=== PATIENT | female | born 1940 | race Two or more races ===

== ENCOUNTER → 2024-02-06 | Outpatient (BNVA) | payer OTHER, MEDICAID, SELFPAY | END | disposition home or self-care (01) | PROVIDERS: PCP Nurse Practitioner Family; Referring Provider Nurse Practitioner Family; Visit Provider Urology Female Pelvic Medicine and Reconstructive Surgery | DX: N32.81 Overactive bladder (principal); N39.41 Urge incontinence; N76.0 Acute vaginitis; E11.9 Type 2 diabetes mellitus without complications; I10 Essential (primary) hypertension; E78.00 Pure hypercholesterolemia, unspecified; K21.9 Gastro-esophageal reflux disease without esophagitis | CPT/HCPCS: 51798; 76857; 81003; 99212; G0463 ==

== ENCOUNTER → 2024-03-05 | Outpatient (CLI) | payer OTHER, MEDICAID, SELFPAY ==
[2024-03-05 07:32] LABS: Misc Send Out* See Sep Rpt
[2024-03-05 07:51] LABS: Collection Type, Urine Clean Catch
[2024-03-05 08:38] LABS: Basophils % (Auto) 1 % (0-2.5); Eosinophils # (Auto) 0.2 Thou/mm3 (0.0-0.5); Eosinophils % (Auto) 3 % (0-10); Hematocrit 43.5 % (36.0-46.0); Immature Granulocytes % (Auto) 0 % (0-0); Immature Granulocytes Auto 0.02 Thou/mm3 (0.00-0.00); Lymphocytes # (Auto) 1.7 Thou/mm3 (1.0-4.8); Lymphocytes % (Auto) 21 % (10-50); Mean Corpuscular HGB Conc 34.5 g/dl (31.0-37.0); Mean Corpuscular Hemoglobin 29.3 pg (25.0-35.0); Mean Corpuscular Volume 85 fL (80-100); Monocytes # (Auto) 0.5 Thou/mm3 (0.0-0.8); Monocytes % (Auto) 6 % (0-12); Neutrophils # (Auto) 5.5 Thou/mm3 (1.8-7.7); Neutrophils % (Auto) 69 % (37-80); Nucleated Red Blood Cell % 0 /100 WBC (0); Platelet Count 206 Thou/mm3 (140-440); RDW Standard Deviation 38.9 fL (36.4-46.3); Red Blood Count 5.12 Miln/mm3 (4.00-5.20); White Blood Count 7.9 Thou/mm3 (3.6-11.0)
[2024-03-05 08:48] LABS: Bacteria,Urine 3+; Bilirubin,Urine Negative (Negative); Blood,Urine Negative (Negative); Color,Urine Yellow (Lt Yel-Yel); Glucose, Urine 4+ (Negative); Ketones,Urine Negative (Negative); Leukocyte Esterase,Urine Positive (Negative); Nitrite,Urine Positive (Negative); PH,Urine 6.5 (5.0-7.0); Protein,Urine Negative (Neg - Trace); RBC,Urine 3 /hpf (0-3); Specific Gravity,Urine 1.032 (1.001-1.035); Squamous Epithelial Cell,Urine 6 /hpf (0-5); Urobilinogen,Urine Negative mg/dL (0.0-1.0); WBC,Urine 11 /hpf (0-5)
[2024-03-05 08:55] LABS: Folate 21.03 ng/mL (>5.38)
[2024-03-05 08:56] LABS: Cardiac Risk Estimate 4.3 RATIO (3.7-5.6); Cholesterol 166 mg/dL (132-200); HDL Cholesterol 39 mg/dL (40-60); LDL Cholesterol,Calculated 81 mg/dL (0-130); Thyroid Stimulating Hormone 2.66 uIU/mL (0.55-4.78); Triglycerides 231 mg/dL (30-150)
[2024-03-05 09:10] LABS: Clarity,Urine Hazy (Clear/Hazy)
[2024-03-05 10:22] LABS: Ferritin 66 ng/mL (7.3-270.7); T4 (Thyroxine) 10.5 mcg/dL (4.5-10.9); Total Iron Binding Capacity 268 mcg/dL (250-425)
[2024-03-05 12:09] LABS: Glucose Estimated Average 298 mg/dL (80-131)
== END | disposition home or self-care (01) ==
PROVIDERS: PCP Family Medicine; Referring Provider Nurse Practitioner Family; Visit Provider Nurse Practitioner Family
DX: D64.9 Anemia, unspecified (principal); E11.9 Type 2 diabetes mellitus without complications; I10 Essential (primary) hypertension
CPT/HCPCS: 36415; 80061; 81001; 82728; 82746; 83036; 83550; 84436; 84443; 84466; 85025

== ENCOUNTER → 2024-03-12 | Outpatient (CLI) | payer OTHER, MEDICAID, SELFPAY | END | disposition home or self-care (01) | LOC: SLDO 15:35 | PROVIDERS: PCP Family Medicine; Referring Provider Family Medicine; Visit Provider Family Medicine | DX: N39.0 Urinary tract infection, site not specified (principal) | CPT/HCPCS: 87077; 87086; 87186 ==

== ENCOUNTER 2024-03-26 17:55 | Emergency (ER) | payer OTHER, MEDICAID, SELFPAY ==
[2024-03-26 18:20] VITALS: BP 145/80; PULSE 83; RESP 19; TEMP 36.9; O2SAT 95; BMI 33.0
--- NOTE | 2024-03-26 18:34 | PD.EDRME ---
Rapid Medical Screening Exam RME Arrival date/time: 03/26/24 17:55 83-year-old female past medical history of hypertension and diabetes since emergency department complaining of diaphoresis with nausea vomiting started 2 hours ago. Patient reports thinks her blood sugar is elevated. Chief Complaint: Nausea/Vomiting/Diarrhea Time Seen by Provider: 03/26/24 18:21 Vital signs: Vital Signs Temperature 98.4 F 03/26/24 18:20 Pulse Rate 83 03/26/24 18:20 Respiratory Rate 19 03/26/24 18:20 Blood Pressure 145/80 H 03/26/24 18:20 Pulse Oximetry (%) 95 03/26/24 18:20 Oxygen Delivery Method Room Air 03/26/24 18:20 Vital signs reviewed by provider: Yes
[2024-03-26 19:06] LABS: Basophils # (Auto) 0.1 Thou/mm3 (0.0-0.2); Basophils % (Auto) 0 % (0-2.5); Eosinophils # (Auto) 0.2 Thou/mm3 (0.0-0.5); Eosinophils % (Auto) 2 % (0-10); Hematocrit 43.4 % (36.0-46.0); Hemoglobin 14.4 g/dL (12.0-16.0); Immature Granulocytes % (Auto) 0 % (0-0); Immature Granulocytes Auto 0.04 Thou/mm3 (0.00-0.00); Lymphocytes # (Auto) 2.8 Thou/mm3 (1.0-4.8); Lymphocytes % (Auto) 25 % (10-50); Mean Corpuscular HGB Conc 33.2 g/dl (31.0-37.0); Mean Corpuscular Hemoglobin 29.1 pg (25.0-35.0); Mean Corpuscular Volume 88 fL (80-100); Monocytes # (Auto) 0.9 Thou/mm3 (0.0-0.8); Monocytes % (Auto) 8 % (0-12); Neutrophils # (Auto) 7.1 Thou/mm3 (1.8-7.7); Neutrophils % (Auto) 64 % (37-80); Nucleated Red Blood Cell % 0 /100 WBC (0); Platelet Count 229 Thou/mm3 (140-440); RDW Standard Deviation 41.9 fL (36.4-46.3); Red Blood Count 4.95 Miln/mm3 (4.00-5.20); White Blood Count 11.1 Thou/mm3 (3.6-11.0)
[2024-03-26 19:22] LABS: Alanine Aminotransferase 17 U/L (10-49); Albumin, Serum 4.5 gm/dL (3.4-4.8); Albumin/Globulin Ratio 1.5 (1.2-2.2); Alkaline Phosphatase 90 U/L (46-116); Anion Gap 10 (7-16); Aspartate Amino Transferase 16 U/L (0-34); BUN/Creatinine Ratio 21 Ratio (12-20); Bilirubin,Total 0.4 mg/dL (0.3-1.2); Blood Urea Nitrogen 17 mg/dL (9-23); Calcium 9.6 mg/dL (8.3-10.6); Calcium (Corrected) 9.6 mg/dL (8.5-10.1); Carbon Dioxide 25.9 mMol/L (20.0-31.0); Chloride 104 mMol/L (98-107); Creatinine (Component) 0.8 mg/dL (0.6-1.3); Estimated Creatinine Clearance 49.6 mL/min (>60); Glucose 99 mg/dL (74-106); Lipase 52 U/L (12-53); Osmolality,Calculated 280 (275-295); Potassium 4.2 mMol/L (3.4-5.1); Sodium 140 mMol/L (136-145); Total Protein 7.5 gm/dL (5.7-8.2); eGFR > 60 See Note
[2024-03-26 19:28] LABS: Collection Type, Urine Clean Catch
[2024-03-26 19:58] LABS: Bacteria,Urine Rare; Bilirubin,Urine Negative (Negative); Blood,Urine Negative (Negative); Clarity,Urine Clear (Clear/Hazy); Color,Urine Lt-Yellow (Lt Yel-Yel); Culture Indicated,Urine Not Indicated; Glucose, Urine 4+ (Negative); Ketones,Urine Negative (Negative); Leukocyte Esterase,Urine Negative (Negative); Nitrite,Urine Negative (Negative); Protein,Urine Negative (Neg - Trace); RBC,Urine 1 /hpf (0-3); Specific Gravity,Urine 1.017 (1.001-1.035); Squamous Epithelial Cell,Urine 6 /hpf (0-5); Urobilinogen,Urine Negative mg/dL (0.0-1.0); WBC,Urine 4 /hpf (0-5)
--- NOTE | 2024-03-26 20:16 | EDNOTE_ITS ---
ED General RME/HPI General Chief complaint: Nausea/Vomiting/Diarrhea Stated complaint: N/V, HOT FLASHES, LIGHT HEADED Time Seen by Provider: 03/26/24 18:21 Source: patient Arrival date/time: 03/26/24 17:55 83-year-old female past medical history of hypertension and diabetes since emergency department complaining of diaphoresis with nausea that started 2 hours ago. Patient reports thinks her blood sugar is elevated. Mode of arrival: ambulatory Limitations: no limitations RME / HPI RME / HPI narrative: 03/26/24 17:55 83-year-old female past medical history of hypertension and diabetes since emergency department complaining of diaphoresis with nausea vomiting started 2 hours ago. Patient reports thinks her blood sugar is elevated. Related Data Home Medications ?Medication ?Instructions ?Recorded ?Confirmed metoprolol succinate 50 mg 50 mg PO DAILY 01/01/18 02/06/24 tablet,extended release 24 hr amlodipine 10 mg tablet 10 mg PO QDAY 04/07/22 02/06/24 acetaminophen 500 mg tablet 500 mg PO Q6H PRN Pain 08/05/23 02/06/24 atorvastatin 20 mg tablet 20 mg PO QDAY 08/05/23 02/06/24 ibuprofen 800 mg tablet 800 mg PO Q8H PRN Pain 08/05/23 02/06/24 olmesartan 5 mg tablet 5 mg PO QDAY 08/05/23 02/06/24 estradiol 0.01% (0.1 mg/gram) 2 g vaginal DIRECTED 02/06/24 02/06/24 vaginal cream (Estrace) oxybutynin chloride 10 mg 10 mg PO QDAY 02/06/24 02/06/24 tablet,extended release 24 hr Allergies Allergy/AdvReac Type Severity Reaction Status Date / Time codeine AdvReac Severe Vomiting Verified 02/06/24 09:51 morphine AdvReac Severe Vomiting Verified 02/06/24 09:51 Review of Systems Review of Systems Systems Reviewed: All systems reviewed, normal except as documented Constitutional Constitutional: Reports system reviewed and no additional complaints, except as documented, Denies body ache(s), Denies chills, Reports excessive sweating and Denies fever(s) Eyes Eyes: Reports system reviewed and no additional complaints, except as documented and Denies change in vision ENT Ears, Nose, Mouth, and Throat: Reports system reviewed and no additional complaints, except as documented, Denies disequilibrium, Denies dizziness, Denies sore throat and Denies vertigo Cardiovascular Cardiovascular: Reports system reviewed and no additional complaints, except as documented, Denies chest pain and Denies dyspnea Respiratory Respiratory: Reports system reviewed and no additional complaints, except as documented, Denies chest congestion, Denies cough and Denies dyspnea Gastrointestinal Gastrointestinal: Reports system reviewed and no additional complaints, except as documented, Denies abdominal pain, Reports nausea and Denies vomiting Musculoskeletal Musculoskeletal: Reports system reviewed and no additional complaints, except as documented, Denies abnormal gait and Denies arthralgias Integumentary/Breasts Skin/Breast: Reports system reviewed and no additional complaints, except as documented, Denies erythema, Denies rash and Denies wounds Neurologic Neurologic: Reports system reviewed and no additional complaints, except as documented, Denies abnormal gait, Denies disequilibrium, Denies dizziness and Denies vertigo Endocrine Endocrine: Reports excessive sweating Past Medical History Past Medical History NEUROLOGIC: Negative Neurological Disorders or Seizures CARDIAC: Positive Cardiac Disorders, Hypercholesterolemia and Hypertension; Negative Congestive Heart Failure RESPIRATORY: Negative Chronic Obstructive Pulmonary Disease (COPD) or Asthma GASTROINTESTINAL: Positive Gastrointestinal Disorders, Gall Bladder Disease, Gastroesophageal Reflux Disease and Obesity; Negative Hepatitis GENITOURINARY: Negative Genitourinary Disorders or Renal Disease REPRODUCTIVE: Positive Previous Pregnancies; Negative Endometriosis MUSCULOSKELETAL: Positive Musculoskeletal Disorders, Arthritis and Carpal Tunnel Syndrome (left) ENT: Positive Cataracts (left) ENDOCRINE: Positive Endocrine Disorders and Diabetes Mellitus Type 2 (Diet control, does not take meds); Negative Diabetes Mellitus Type 1 HEMATOLOGIC: Negative Blood Disorders or Sickle Cell Disease OTHER HISTORY: Positive Hospitalization, Chicken Pox, Measles and Mumps; Negative Autoimmune Disease, Shingles, Falls, Blood Transfusions, Blood Transfusion Reaction, Anesthesia Reactions, Chemotherapy, Radiation Therapy, MRSA or Cancer Family History FAMILY HISTORY: Negative Family Psychiatric Problems, Family Respiratory Disorders, Family Cardiac Disorders, Family Gastrointestinal Problems, Family Cancer, Family Surgery or Family Anesthesia Reaction Surgical History SURGICAL: Positive Thyroidectomy, Ear Surgery, Joint Replacement, Hysterectomy and Tubal Ligation; Negative Cardiac Surgery Social History SMOKING STATUS: Never smoker SUBSTANCE USE: does not use ED Exam General Limitations: Present no limitations General appearance: Present alert and in no apparent distress Head Head exam: Present atraumatic Eye Eye exam: Present normal appearance, PERRL and EOMI ENT ENT exam: Present normal exam, normal oropharynx and mucous membranes moist Neck Neck exam: Present normal inspection, full ROM and trachea midline Chest Chest inspection: Present normal inspection and symmetric chest wall rise Respiratory Respiratory exam: Present normal lung sounds bilaterally Cardiovascular Cardiovascular exam: Present regular rate, normal rhythm and normal heart sounds Abdominal Exam Abdominal exam: Present soft and normal bowel sounds Extremities Exam Extremities exam: Present normal inspection and full ROM Back Exam Back exam: Present normal inspection and full ROM Neurological Exam Neurological exam: Present alert, oriented X3 and CN II-XII intact Psychiatric Psychiatric exam: Present normal affect and normal mood Skin Skin exam: Present warm, dry, intact and normal color Course Quality Measures none Orders Category Date Time Status CBC Stat Lab 03/26/24 18:37 Completed CMP [Comprehensive Metabolic Panel] Stat Lab 03/26/24 18:37 Completed Lipase Stat Lab 03/26/24 18:37 Completed Urinalysis, C/S if Indicated Stat Lab 03/26/24 19:00 Completed Vital Signs Vital signs: Vital Signs Temperature 98.4 F 03/26/24 18:20 Pulse Rate 83 03/26/24 18:20 Respiratory Rate 19 03/26/24 18:20 Blood Pressure 145/80 H 03/26/24 18:20 Pulse Oximetry (%) 95 03/26/24 18:20 Oxygen Delivery Method Room Air 03/26/24 18:20 95% room air within normal limits MDM Patient data External records reviewed:: [facility] previous records Clinical information provided by:: patient Social determinants that could affect healthcare access:: none Patient has the following chronic illnesses:: See chart How is presenting disease/condition affected by chronic disease/condition?: u neffected by Evaluation data The following diagnostics were reviewed and interpreted by me:: lab results Lab and/or radiology exams considered but not ordered:: Ordered Interpretation Summary: Interpreted by me Medications Medications considered but not ordered:: N/A Medication administrations:: N/A Consultations Consultation(s) initiated? (list below): No Diagnosis Differential Diagnosis ED Complaint MDM: Hyperglycemia, viral infection, UTI, Most likely diagnosis given after review of the tests above:: Nausea Admission Indicated Admission indicated?: not indicated Explain why admission is indicated or not indicated:: No admission criteria Admission Request Was there a request for admission?: No Disposition Plan Disposition Plan: Discharge Discharge Attestation Discharge Attestation: The patient and all family members were given an opportunity to ask questions and understood the discharge instructions. Discharge instructions specifically effects, indications for sooner follow up or return to the emergency department, and the expected course of current diagnosis. Patient condition: Stable Medical Decision Making MDM Narrative MDM Narrative: 83-year-old female past medical history of hypertension and diabetes since emergency department complaining of diaphoresis with nausea that started 2 hours ago. Patient reports thinks her blood sugar is elevated. CBC and CMP were unremarkable. Urinalysis unremarkable for any infection. Patient appears nontoxic and is hemodynamically stable. Patient do not report any pain at this time. No vomiting was observed during stay. Patient discharged instructed to follow-up with primary care provider. Differential Diagnosis Differential Diagnosis: Hyperglycemia, viral infection, UTI, Lab Data 03/26/24 18:37 03/26/24 18:37 Labs: Lab Results 03/26/24 03/26/24 Range/Units 18:37 19:00 WBC 11.1 H (3.6-11.0) Thou/mm3 RBC 4.95 (4.00-5.20) Miln/mm3 Hgb 14.4 (12.0-16.0) g/dL Hct 43.4 (36.0-46.0) % MCV 88 (80-100) fL MCH 29.1 (25.0-35.0) pg MCHC 33.2 (31.0-37.0) g/dl RDW Std Deviation 41.9 (36.4-46.3) fL Plt Count 229 (140-440) Thou/mm3 Neut % (Auto) 64 (37-80) % Lymph % (Auto) 25 (10-50) % [place] % (Auto) 8 (0-12) % Eos % (Auto) 2 (0-10) % Baso % (Auto) 0 (0-2.5) % Neut # (Auto) 7.1 (1.8-7.7) Thou/mm3 Lymph # (Auto) 2.8 (1.0-4.8) Thou/mm3 [place] # (Auto) 0.9 H (0.0-0.8) Thou/mm3 Eos # (Auto) 0.2 (0.0-0.5) Thou/mm3 Baso # (Auto) 0.1 (0.0-0.2) Thou/mm3 Immature Gran # (Auto) 0.04 H (0.00-0.00) Thou/mm3 Absolute Nucleated RBC 0.00 (0.00-0.00) Thou/mm3 Immature Gran % 0 (0-0) % Nucleated RBC % 0 (0) /100 WBC Sodium 140 (136-145) mMol/L Potassium 4.2 (3.4-5.1) mMol/L Chloride 104 (98-107) mMol/L Carbon Dioxide 25.9 (20.0-31.0) mMol/L Anion Gap 10 (7-16) BUN 17 (9-23) mg/dL Creatinine 0.8 (0.6-1.3) mg/dL Estim Creat Clear Calc 49.6 L (>60) mL/min eGFR > 60 (60 - ) See Note BUN/Creatinine Ratio 21 H (12-20) Ratio Glucose 99 (74-106) mg/dL Calculated Osmolality 280 (275-295) Calcium 9.6 (8.3-10.6) mg/dL Corrected Calcium 9.6 (8.5-10.1) mg/dL Total Bilirubin 0.4 (0.3-1.2) mg/dL AST 16 (0-34) U/L ALT 17 (10-49) U/L Alkaline Phosphatase 90 (46-116) U/L Total Protein 7.5 (5.7-8.2) gm/dL Albumin 4.5 (3.4-4.8) gm/dL Globulin 3.0 (2.3-3.5) gm/dL Albumin/Globulin Ratio 1.5 (1.2-2.2) Lipase 52 (12-53) U/L Ur Collection Type Clean Catch Urine Color Lt-Yellow (Lt Yel-Yel) Urine Clarity Clear (Clear/Hazy) Urine pH 6.0 (5.0-7.0) Ur Specific [place] 1.017 (1.001-1.035) Urine Protein Negative (Neg - Trace) Urine Glucose (UA) 4+ A (Negative) Urine Ketones Negative (Negative) Urine Blood Negative (Negative) Urine Nitrite Negative (Negative) Urine Bilirubin Negative (Negative) Urine Urobilinogen (Auto) Negative (0.0-1.0) mg/dL Ur Leukocyte Esterase Negative (Negative) Urine RBC 1 (0-3) /hpf Urine WBC 4 (0-5) /hpf Ur Squamous Epith Cells 6 H (0-5) /hpf Urine Bacteria Rare (None) Ur Culture Indicated? Not Indicated Discharge Plan Plan Patient Disposition: HOME (Self Care) Disposition Comment: Stable Prescriptions/Referrals Prescriptions/Med Rec: No Action oxybutynin chloride 10 mg tablet extended release 24hr 10 mg PO QDAY estradiol [Estrace] 0.01 % (0.1 mg/gram) cream 2 g vaginal DIRECTED Patient Comments: twice a week metoprolol succinate 50 mg Tablet Extended Release 24 Hr 50 mg PO DAILY amlodipine 10 mg tablet 10 mg PO QDAY atorvastatin 20 mg Tablet 20 mg PO QDAY ibuprofen 800 mg Tablet 800 mg PO Q8H PRN (Reason: Pain) acetaminophen [Tylenol Ex Str Arthritis Pain] 500 mg Tablet 500 mg PO Q6H PRN (Reason: Pain) olmesartan 5 mg Tablet 5 mg PO QDAY Referrals: Aditya Delong MD [Primary Care Provider] - In 1 week Problem List Clinical Impression: Nausea Patient/Caregiver Discharge Instructions Discharge Activity: activity as tolerated Education Materials: ED Diet for Vomiting or ... Additional Instructions: Fluids as tolerated. Get plenty of rest. Follow-up with primary care provider in 24 to 40 hours. Return to emergency department for any worsening symptoms or as needed. Print Language: Turkmen Stand Alone Forms: [employer] Award Info., Patient Portal Info Letter PA/ORACLE EBS DEVELOPER Supervising Physician VICENTE/NAOMIE Supervising Physician: Dr. Broderick
== END 2024-03-26 20:25 | disposition home or self-care (01) ==
PROVIDERS: Emergency Provider Emergency Medicine; PCP Family Medicine
DX: R11.2 Nausea with vomiting, unspecified (principal)
CPT/HCPCS: 36415; 80053; 81001; 83690; 85025; 99283

== ENCOUNTER 2024-04-02 17:42 | Emergency (ER) | payer OTHER, MEDICAID, SELFPAY ==
[2024-04-02 18:13] VITALS: BP 146/80; PULSE 73; RESP 18; TEMP 36.7; O2SAT 95
--- NOTE | 2024-04-02 18:21 | PD.EDRME ---
Rapid Medical Screening Exam E Arrival date/time: 04/02/24 17:42 83-year-old female past medical history of diabetes recently started on glipizide 10 mg 1 month ago patient reported felt dizzy diaphoretic checked her blood sugar was 97 and she reports usually is in the 120s. Patient reports ate some candy right after and felt better. Chief Complaint: Recheck/Abnormal Lab/Rx Time Seen by Provider: 04/02/24 18:07 Vital signs: Vital Signs Temperature 98.0 F 04/02/24 18:13 Pulse Rate 73 04/02/24 18:13 Respiratory Rate 18 04/02/24 18:13 Blood Pressure 146/80 H 04/02/24 18:13 Pulse Oximetry (%) 95 04/02/24 18:13 Oxygen Delivery Method Room Air 04/02/24 18:13 Vital signs reviewed by provider: Yes
[2024-04-02 18:49] LABS: Basophils # (Auto) 0.1 Thou/mm3 (0.0-0.2); Basophils % (Auto) 1 % (0-2.5); Eosinophils # (Auto) 0.2 Thou/mm3 (0.0-0.5); Eosinophils % (Auto) 2 % (0-10); Hematocrit 43.3 % (36.0-46.0); Hemoglobin 14.1 g/dL (12.0-16.0); Immature Granulocytes % (Auto) 0 % (0-0); Immature Granulocytes Auto 0.02 Thou/mm3 (0.00-0.00); Lymphocytes # (Auto) 2.6 Thou/mm3 (1.0-4.8); Lymphocytes % (Auto) 23 % (10-50); Mean Corpuscular HGB Conc 32.6 g/dl (31.0-37.0); Mean Corpuscular Hemoglobin 28.5 pg (25.0-35.0); Mean Corpuscular Volume 88 fL (80-100); Monocytes # (Auto) 0.7 Thou/mm3 (0.0-0.8); Monocytes % (Auto) 6 % (0-12); Neutrophils # (Auto) 7.5 Thou/mm3 (1.8-7.7); Neutrophils % (Auto) 68 % (37-80); Nucleated Red Blood Cell % 0 /100 WBC (0); Platelet Count 231 Thou/mm3 (140-440); RDW Standard Deviation 42.2 fL (36.4-46.3); Red Blood Count 4.94 Miln/mm3 (4.00-5.20); White Blood Count 10.9 Thou/mm3 (3.6-11.0)
[2024-04-02 19:02] LABS: Alanine Aminotransferase 13 U/L (10-49); Albumin, Serum 4.6 gm/dL (3.4-4.8); Albumin/Globulin Ratio 1.6 (1.2-2.2); Alkaline Phosphatase 83 U/L (46-116); Anion Gap 9 (7-16); Aspartate Amino Transferase 12 U/L (0-34); BUN/Creatinine Ratio 23 Ratio (12-20); Bilirubin,Total 0.5 mg/dL (0.3-1.2); Blood Urea Nitrogen 14 mg/dL (9-23); Carbon Dioxide 26.8 mMol/L (20.0-31.0); Chloride 105 mMol/L (98-107); Creatinine (Component) 0.6 mg/dL (0.6-1.3); Globulin 2.9 gm/dL (2.3-3.5); Glucose 106 mg/dL (74-106); Osmolality,Calculated 281 (275-295); Potassium 3.8 mMol/L (3.4-5.1); Sodium 141 mMol/L (136-145); Total Protein 7.5 gm/dL (5.7-8.2); eGFR > 60 See Note
[2024-04-02 19:19] LABS: Collection Type, Urine Clean Catch
[2024-04-02 19:30] LABS: Bacteria,Urine 1+; Bilirubin,Urine Negative (Negative); Blood,Urine Negative (Negative); Clarity,Urine Clear (Clear/Hazy); Color,Urine Colorless (Lt Yel-Yel); Glucose, Urine 4+ (Negative); Ketones,Urine Negative (Negative); Leukocyte Esterase,Urine Negative (Negative); Nitrite,Urine Negative (Negative); Protein,Urine Negative (Neg - Trace); RBC,Urine 2 /hpf (0-3); Specific Gravity,Urine 1.008 (1.001-1.035); Squamous Epithelial Cell,Urine 3 /hpf (0-5); Urobilinogen,Urine Negative mg/dL (0.0-1.0); WBC,Urine 5 /hpf (0-5)
[2024-04-02 19:32] LABS: Culture Indicated,Urine Yes
--- NOTE | 2024-04-02 20:19 | PD.EDRECHK ---
ED Recheck Abnl Lab Rx-RME/HPI General Chief Complaint: Recheck/Abnormal Lab/Rx Stated Complaint: BLOOD SUGAR WENT DOWN ; SWEATING A LOT Time Seen by Provider: 04/02/24 18:07 Source: patient Arrival date/time: 04/02/24 17:42 83-year-old female past medical history of diabetes recently started on glipizide 10 mg 1 month ago patient reported felt dizzy diaphoretic checked her blood sugar was 97 and she reports usually is in the 120s. Patient reports ate some candy right after and felt better. Mode of arrival: ambulatory Limitations: no limitations RME / HPI RME / HPI narrative: 04/02/24 17:42 83-year-old female past medical history of diabetes recently started on glipizide 10 mg 1 month ago patient reported felt dizzy diaphoretic checked her blood sugar was 97 and she reports usually is in the 120s. Patient reports ate some candy right after and felt better. Related Data Home Medications ?Medication ?Instructions ?Recorded ?Confirmed metoprolol succinate 50 mg 50 mg PO DAILY 01/01/18 02/06/24 tablet,extended release 24 hr amlodipine 10 mg tablet 10 mg PO QDAY 04/07/22 02/06/24 acetaminophen 500 mg tablet 500 mg PO Q6H PRN Pain 08/05/23 02/06/24 atorvastatin 20 mg tablet 20 mg PO QDAY 08/05/23 02/06/24 ibuprofen 800 mg tablet 800 mg PO Q8H PRN Pain 08/05/23 02/06/24 olmesartan 5 mg tablet 5 mg PO QDAY 08/05/23 02/06/24 estradiol 0.01% (0.1 mg/gram) 2 g vaginal DIRECTED 02/06/24 02/06/24 vaginal cream (Estrace) oxybutynin chloride 10 mg 10 mg PO QDAY 02/06/24 02/06/24 tablet,extended release 24 hr Allergies Allergy/AdvReac Type Severity Reaction Status Date / Time codeine AdvReac Severe Vomiting Verified 04/02/24 17:43 morphine AdvReac Severe Vomiting Verified 04/02/24 17:43 Review of Systems Review of Systems Systems Reviewed: All systems reviewed, normal except as documented Constitutional Constitutional: Reports system reviewed and no additional complaints, except as documented, Denies body ache(s), Denies chills, Reports excessive sweating, Denies fever(s) and Reports other Eyes Eyes: Reports system reviewed and no additional complaints, except as documented and Denies change in vision ENT Ears, Nose, Mouth, and Throat: Reports system reviewed and no additional complaints, except as documented, Denies disequilibrium, Denies dizziness, Denies sore throat and Reports vertigo Cardiovascular Cardiovascular: Reports system reviewed and no additional complaints, except as documented, Denies chest pain and Denies dyspnea Respiratory Respiratory: Reports system reviewed and no additional complaints, except as documented, Denies chest congestion, Denies cough and Denies dyspnea Gastrointestinal Gastrointestinal: Reports system reviewed and no additional complaints, except as documented, Denies abdominal pain, Denies nausea and Denies vomiting Musculoskeletal Musculoskeletal: Reports system reviewed and no additional complaints, except as documented, Denies abnormal gait and Denies arthralgias Integumentary/Breasts Skin/Breast: Reports system reviewed and no additional complaints, except as documented, Denies erythema, Denies rash and Denies wounds Neurologic Neurologic: Reports system reviewed and no additional complaints, except as documented, Denies abnormal gait, Denies disequilibrium, Denies dizziness and Reports vertigo Endocrine Endocrine: Reports excessive sweating Past Medical History Past Medical History NEUROLOGIC: Negative Neurological Disorders or Seizures CARDIAC: Positive Cardiac Disorders, Hypercholesterolemia and Hypertension; Negative Congestive Heart Failure RESPIRATORY: Negative Chronic Obstructive Pulmonary Disease (COPD) or Asthma GASTROINTESTINAL: Positive Gastrointestinal Disorders, Gall Bladder Disease, Gastroesophageal Reflux Disease and Obesity; Negative Hepatitis GENITOURINARY: Negative Genitourinary Disorders or Renal Disease REPRODUCTIVE: Positive Previous Pregnancies; Negative Endometriosis MUSCULOSKELETAL: Positive Musculoskeletal Disorders, Arthritis and Carpal Tunnel Syndrome (left) ENT: Positive Cataracts (left) ENDOCRINE: Positive Endocrine Disorders and Diabetes Mellitus Type 2 (Diet control, does not take meds); Negative Diabetes Mellitus Type 1 HEMATOLOGIC: Negative Blood Disorders or Sickle Cell Disease OTHER HISTORY: Positive Hospitalization, Chicken Pox, Measles and Mumps; Negative Autoimmune Disease, Shingles, Falls, Blood Transfusions, Blood Transfusion Reaction, Anesthesia Reactions, Chemotherapy, Radiation Therapy, MRSA or Cancer Family History FAMILY HISTORY: Negative Family Psychiatric Problems, Family Respiratory Disorders, Family Cardiac Disorders, Family Gastrointestinal Problems, Family Cancer, Family Surgery or Family Anesthesia Reaction Surgical History SURGICAL: Positive Thyroidectomy, Ear Surgery, Joint Replacement, Hysterectomy and Tubal Ligation; Negative Cardiac Surgery Social History SMOKING STATUS: Never smoker SUBSTANCE USE: does not use ED Exam General Limitations: Present no limitations General appearance: Present alert and in no apparent distress Head Head exam: Present atraumatic Eye Eye exam: Present normal appearance, PERRL and EOMI ENT ENT exam: Present normal exam, normal oropharynx and mucous membranes moist Neck Neck exam: Present normal inspection, full ROM and trachea midline Chest Chest inspection: Present normal inspection and symmetric chest wall rise Respiratory Respiratory exam: Present normal lung sounds bilaterally Cardiovascular Cardiovascular exam: Present regular rate, normal rhythm and normal heart sounds Abdominal Exam Abdominal exam: Present soft and normal bowel sounds Extremities Exam Extremities exam: Present normal inspection and full ROM Back Exam Back exam: Present normal inspection and full ROM Neurological Exam Neurological exam: Present alert, oriented X3 and CN II-XII intact Psychiatric Psychiatric exam: Present normal affect and normal mood Skin Skin exam: Present warm, dry, intact and normal color Course Quality Measures none Orders Category Date Time Status Bedside Blood Glucose NOW Care 04/02/24 19:55 Active CBC Stat Lab 04/02/24 18:33 Completed CMP [Comprehensive Metabolic Panel] Stat Lab 04/02/24 18:33 Completed Urinalysis, C/S if Indicated Stat Lab 04/02/24 19:13 Completed Urine Culture Stat Lab 04/02/24 19:13 Received Vital Signs Vital signs: Vital Signs Temperature 98.0 F 04/02/24 18:13 Pulse Rate 73 04/02/24 18:13 Respiratory Rate 18 04/02/24 18:13 Blood Pressure 146/80 H 04/02/24 18:13 Pulse Oximetry (%) 95 04/02/24 18:13 Oxygen Delivery Method Room Air 04/02/24 18:13 95% room air within normal limits Recheck / Abnormal Lab / Rx MDM Narrative MDM Narrative:: 83-year-old female past medical history of diabetes recently started on glipizide 10 mg 1 month ago patient reported felt dizzy diaphoretic checked her blood sugar was 97 and she reports usually is in the 120s. Patient reports ate some candy right after and felt better. Patient denies any fever, chills, nausea vomiting, dysuria, diarrhea, or any other associated symptom. CBC unremarkable for any leukocytosis or anemia. CMP was unremarkable and blood sugar was 106. Urinalysis positive for bacteria but patient is asymptomatic will not treat at this time instructed patient to have repeat UA in office with primary care provider. Patient given sandwich and repeated blood sugar before discharge. Patient data External records reviewed:: [facility] previous records Clinical information provided by:: patient Social determinants that could affect healthcare access:: none Patient has the following chronic illnesses:: See chart How is presenting disease/condition affected by chronic disease/condition?: exacerbated by Evaluation data The following diagnostics were reviewed and interpreted by me:: lab results Lab and/or radiology exams considered but not ordered:: Ordered Interpretation Summary: Interpreted by me Medications / Prescriptions Medications or Prescriptions considered but not ordered:: N/A Medication administrations:: N/A Consultations Consultation(s) initiated? (list below): No Diagnosis Recheck Differential Diagnosis: other (UTI, hypoglycemia) Most likely diagnosis given after review of the tests above:: Abnormal blood sugar Admission Indicated Admission indicated?: not indicated Admission Request Was there a request for admission?: No Disposition Plan Disposition Plan: Discharge Discharge Attestation Discharge Attestation: The patient and all family members were given an opportunity to ask questions and understood the discharge instructions. Discharge instructions specifically effects, indications for sooner follow up or return to the emergency department, and the expected course of current diagnosis. Patient condition: Stable Discharge Plan Plan Patient Disposition: HOME (Self Care) Disposition Comment: Stable Prescriptions/Referrals Prescriptions/Med Rec: No Action oxybutynin chloride 10 mg tablet extended release 24hr 10 mg PO QDAY estradiol [Estrace] 0.01 % (0.1 mg/gram) cream 2 g vaginal DIRECTED Patient Comments: twice a week metoprolol succinate 50 mg Tablet Extended Release 24 Hr 50 mg PO DAILY amlodipine 10 mg tablet 10 mg PO QDAY atorvastatin 20 mg Tablet 20 mg PO QDAY ibuprofen 800 mg Tablet 800 mg PO Q8H PRN (Reason: Pain) acetaminophen [Tylenol Ex Str Arthritis Pain] 500 mg Tablet 500 mg PO Q6H PRN (Reason: Pain) olmesartan 5 mg Tablet 5 mg PO QDAY Referrals: Mariella Delong MD [Primary Care Provider] - In 1 week Problem List Clinical Impression: Abnormal blood sugar Patient/Caregiver Discharge Instructions Discharge Activity: activity as tolerated Education Materials: Glucose Check Steps Additional Instructions: Stop taking glipizide until he see primary care provider. Have primary care provider repeat UA in office. Continue monitoring blood sugar checks. Close follow-up with primary care provider in 2 to 3 days. Return to emergency department for any worsening symptoms or as needed. Print Language: Kinyarwanda Stand Alone Forms: [employer] Award Info., Patient Portal Info Letter PA/DISH ROOM WORKER Supervising Physician PA/DISH ROOM WORKER Supervising Physician: Dr. Bowie
== END 2024-04-02 20:40 | disposition home or self-care (01) ==
PROVIDERS: Emergency Provider Emergency Medicine; PCP Family Medicine
DX: E11.649 Type 2 diabetes mellitus with hypoglycemia without coma (principal)
CPT/HCPCS: 36415; 80053; 81001; 85025; 87086; 99283

== ENCOUNTER → 2024-04-06 | Outpatient (CLI) | payer OTHER, MEDICAID, SELFPAY ==
--- NOTE | 2024-04-06 | XR_ITS ---
Examination: PA lateral chest 2 TECHNIQUE: Upright PA lateral chest 2 views Exam date and time: April 06, 2024 1207 hours INDICATIONS: Coughing congestion beginning 2 weeks ago. FINDINGS: No significant cardiac enlargement Mild accentuation basilar bronchovascular markings No lobar pneumonia Moderate osteopenia IMPRESSION: Mild basilar bronchitis pattern
== END | disposition home or self-care (01) ==
LOC: COPL 11:01
PROVIDERS: PCP Nurse Practitioner Family; Referring Provider Nurse Practitioner Family; Visit Provider Nurse Practitioner Family
DX: R91.8 Other nonspecific abnormal finding of lung field (principal)
CPT/HCPCS: 71046

== ENCOUNTER → 2024-04-09 | Outpatient (CLI) | payer OTHER, MEDICAID, SELFPAY ==
[2024-04-09 07:51] LABS: Misc Send Out* See Sep Rpt
[2024-04-09 09:17] LABS: Basophils # (Auto) 0.1 Thou/mm3 (0.0-0.2); Basophils % (Auto) 1 % (0-2.5); Eosinophils # (Auto) 0.1 Thou/mm3 (0.0-0.5); Eosinophils % (Auto) 1 % (0-10); Hematocrit 42.9 % (36.0-46.0); Hemoglobin 14.1 g/dL (12.0-16.0); Immature Granulocytes % (Auto) 0 % (0-0); Immature Granulocytes Auto 0.04 Thou/mm3 (0.00-0.00); Lymphocytes % (Auto) 20 % (10-50); Mean Corpuscular HGB Conc 32.9 g/dl (31.0-37.0); Mean Corpuscular Hemoglobin 28.8 pg (25.0-35.0); Mean Corpuscular Volume 88 fL (80-100); Monocytes # (Auto) 0.6 Thou/mm3 (0.0-0.8); Monocytes % (Auto) 6 % (0-12); Neutrophils # (Auto) 7.2 Thou/mm3 (1.8-7.7); Neutrophils % (Auto) 72 % (37-80); Nucleated Red Blood Cell % 0 /100 WBC (0); Platelet Count 247 Thou/mm3 (140-440); RDW Standard Deviation 42.3 fL (36.4-46.3); White Blood Count 9.9 Thou/mm3 (3.6-11.0)
[2024-04-09 15:18] LABS: Cocci Serology, IgM Negative (Negative)
[2024-04-11 14:01] LABS: Cocci Serology, IgG Negative (Negative)
== END | disposition home or self-care (01) ==
LOC: COPL 06:41
PROVIDERS: PCP Family Medicine; Referring Provider Nurse Practitioner Family; Visit Provider Nurse Practitioner Family
DX: R50.9 Fever, unspecified (principal); R61 Generalized hyperhidrosis; R19.7 Diarrhea, unspecified
CPT/HCPCS: 36415; 85025; 86331; 86480; 86635; 87177; 87209

== ENCOUNTER → 2024-04-11 | Outpatient (CLI) | payer OTHER, MEDICAID, SELFPAY ==
[2024-04-11 08:03] LABS: Quantiferon-TB* See Sep Rpt
== END | disposition home or self-care (01) ==
LOC: COPL 07:47
PROVIDERS: PCP Family Medicine; Referring Provider Nurse Practitioner Family; Visit Provider Nurse Practitioner Family
DX: R50.9 Fever, unspecified (principal); R61 Generalized hyperhidrosis
CPT/HCPCS: 86480

== ENCOUNTER → 2024-04-13 | Outpatient (CLI) | payer OTHER, MEDICAID, SELFPAY | END | disposition home or self-care (01) | LOC: SLDO 14:25 | PROVIDERS: PCP Nurse Practitioner Family; Referring Provider Nurse Practitioner Family; Visit Provider Nurse Practitioner Family | DX: N39.0 Urinary tract infection, site not specified (principal) | CPT/HCPCS: 87086 ==

== ENCOUNTER 2024-04-23 19:57 | Emergency (ER) | payer MEDICARE, MEDICAID, SELFPAY ==
[2024-04-23 19:59] VITALS: BMI 31.2
[2024-04-23 20:58] VITALS: BP 148/75; PULSE 83; RESP 18; TEMP 36.8; O2SAT 95
--- NOTE | 2024-04-23 21:11 | PD.EDADULT ---
ED General RME/HPI General Chief complaint: General Adult/Misc Complain Stated complaint: HIGH BLOOD SUGAR, 162 Time Seen by Provider: 04/23/24 20:21 Source: patient Arrival date/time: 04/23/24 19:57 83-year-old female past medical history of diabetes recently started on metformin 2 months ago presents from emergency department reporting her blood sugar increased to 162 after eating dinner and she got worried. Patient reports blood sugars usually run in the 150s for her. Patient denies any dizziness, chest pain, vomiting, or any complaints or concerns other than the high blood sugar. Blood sugar was checked and it was 145. Mode of arrival: ambulatory Limitations: no limitations Related Data Home Medications ?Medication ?Instructions ?Recorded ?Confirmed metoprolol succinate 50 mg 50 mg PO DAILY 01/01/18 02/06/24 tablet,extended release 24 hr amlodipine 10 mg tablet 10 mg PO QDAY 04/07/22 02/06/24 acetaminophen 500 mg tablet 500 mg PO Q6H PRN Pain 08/05/23 02/06/24 atorvastatin 20 mg tablet 20 mg PO QDAY 08/05/23 02/06/24 ibuprofen 800 mg tablet 800 mg PO Q8H PRN Pain 08/05/23 02/06/24 olmesartan 5 mg tablet 5 mg PO QDAY 08/05/23 02/06/24 estradiol 0.01% (0.1 mg/gram) 2 g vaginal DIRECTED 02/06/24 02/06/24 vaginal cream (Estrace) oxybutynin chloride 10 mg 10 mg PO QDAY 02/06/24 02/06/24 tablet,extended release 24 hr Allergies Allergy/AdvReac Type Severity Reaction Status Date / Time codeine AdvReac Severe Vomiting Verified 04/02/24 17:43 morphine AdvReac Severe Vomiting Verified 04/02/24 17:43 Review of Systems Review of Systems Systems Reviewed: All systems reviewed, normal except as documented Constitutional Constitutional: Reports system reviewed and no additional complaints, except as documented, Denies body ache(s), Denies chills and Denies fever(s) Eyes Eyes: Reports system reviewed and no additional complaints, except as documented and Denies change in vision ENT Ears, Nose, Mouth, and Throat: Reports system reviewed and no additional complaints, except as documented, Denies disequilibrium, Denies dizziness, Denies sore throat and Denies vertigo Cardiovascular Cardiovascular: Reports system reviewed and no additional complaints, except as documented, Denies chest pain and Denies dyspnea Respiratory Respiratory: Reports system reviewed and no additional complaints, except as documented, Denies chest congestion, Denies cough and Denies dyspnea Gastrointestinal Gastrointestinal: Reports system reviewed and no additional complaints, except as documented, Denies abdominal pain, Denies nausea and Denies vomiting Musculoskeletal Musculoskeletal: Reports system reviewed and no additional complaints, except as documented, Denies abnormal gait and Denies arthralgias Integumentary/Breasts Skin/Breast: Reports system reviewed and no additional complaints, except as documented, Denies erythema, Denies rash and Denies wounds Neurologic Neurologic: Reports system reviewed and no additional complaints, except as documented, Denies abnormal gait, Denies disequilibrium, Denies dizziness and Denies vertigo Past Medical History Past Medical History NEUROLOGIC: Negative Neurological Disorders or Seizures CARDIAC: Positive Cardiac Disorders, Hypercholesterolemia and Hypertension; Negative Congestive Heart Failure RESPIRATORY: Negative Chronic Obstructive Pulmonary Disease (COPD) or Asthma GASTROINTESTINAL: Positive Gastrointestinal Disorders, Gall Bladder Disease, Gastroesophageal Reflux Disease and Obesity; Negative Hepatitis GENITOURINARY: Negative Genitourinary Disorders or Renal Disease REPRODUCTIVE: Positive Previous Pregnancies; Negative Endometriosis MUSCULOSKELETAL: Positive Musculoskeletal Disorders, Arthritis and Carpal Tunnel Syndrome (left) ENT: Positive Cataracts (left) ENDOCRINE: Positive Endocrine Disorders and Diabetes Mellitus Type 2 (Diet control, does not take meds); Negative Diabetes Mellitus Type 1 HEMATOLOGIC: Negative Blood Disorders or Sickle Cell Disease OTHER HISTORY: Positive Hospitalization, Chicken Pox, Measles and Mumps; Negative Autoimmune Disease, Shingles, Falls, Blood Transfusions, Blood Transfusion Reaction, Anesthesia Reactions, Chemotherapy, Radiation Therapy, MRSA or Cancer Family History FAMILY HISTORY: Negative Family Psychiatric Problems, Family Respiratory Disorders, Family Cardiac Disorders, Family Gastrointestinal Problems, Family Cancer, Family Surgery or Family Anesthesia Reaction Surgical History SURGICAL: Positive Thyroidectomy, Ear Surgery, Joint Replacement, Hysterectomy and Tubal Ligation; Negative Cardiac Surgery Social History SMOKING STATUS: Never smoker SUBSTANCE USE: does not use ED Exam General Limitations: Present no limitations General appearance: Present alert and in no apparent distress Head Head exam: Present atraumatic Eye Eye exam: Present normal appearance, PERRL and EOMI ENT ENT exam: Present normal exam, normal oropharynx and mucous membranes moist Neck Neck exam: Present normal inspection, full ROM and trachea midline Chest Chest inspection: Present normal inspection and symmetric chest wall rise Respiratory Respiratory exam: Present normal lung sounds bilaterally Cardiovascular Cardiovascular exam: Present regular rate, normal rhythm and normal heart sounds Abdominal Exam Abdominal exam: Present soft and normal bowel sounds Extremities Exam Extremities exam: Present normal inspection and full ROM Back Exam Back exam: Present normal inspection and full ROM Neurological Exam Neurological exam: Present alert, oriented X3 and CN II-XII intact Psychiatric Psychiatric exam: Present normal affect and normal mood Skin Skin exam: Present warm, dry, intact and normal color Course Quality Measures none Orders Category Date Time Status Bedside Blood Glucose NOW Care 04/23/24 20:50 Completed Vital Signs Vital signs: Vital Signs Temperature 98.2 F 04/23/24 20:58 Pulse Rate 83 04/23/24 20:58 Respiratory Rate 18 04/23/24 20:58 Blood Pressure 148/75 H 04/23/24 20:58 Pulse Oximetry (%) 95 04/23/24 20:58 Oxygen Delivery Method Room Air 04/23/24 20:58 95% room air within normal limits MDM Patient data External records reviewed:: [facility] previous records Clinical information provided by:: patient Social determinants that could affect healthcare access:: none Patient has the following chronic illnesses:: See chart How is presenting disease/condition affected by chronic disease/condition?: caused by Evaluation data The following diagnostics were reviewed and interpreted by me:: other (specify) (N/A) Lab and/or radiology exams considered but not ordered:: N/A Interpretation Summary: N/A Medications Medications considered but not ordered:: N/A Medication administrations:: N/A Consultations Consultation(s) initiated? (list below): No Diagnosis Differential Diagnosis ED Complaint MDM: Hypoglycemia, hyperglycemia Most likely diagnosis given after review of the tests above:: Encounter for diabetes education Admission Indicated Admission indicated?: not indicated Explain why admission is indicated or not indicated:: Not indicated Admission Request Was there a request for admission?: No Disposition Plan Disposition Plan: Discharge Discharge Attestation Discharge Attestation: The patient and all family members were given an opportunity to ask questions and understood the discharge instructions. Discharge instructions specifically effects, indications for sooner follow up or return to the emergency department, and the expected course of current diagnosis. Patient condition: Stable Medical Decision Making MDM Narrative MDM Narrative: 83-year-old female past medical history of diabetes recently started on metformin 2 months ago presents from emergency department reporting her blood sugar increased to 162 after eating dinner and she got worried. Patient reports blood sugars usually run in the 150s for her. Patient denies any dizziness, chest pain, vomiting, or any complaints or concerns other than the high blood sugar. Blood sugar was checked and it was 145. Patient is asymptomatic with no other complaints or concerns. Diabetes education was provided with several printouts for patient to use as resources. Instructed to follow-up with primary care provider in 2 to 3 days and return to emergency department for any worsening symptoms or as needed. Differential Diagnosis Differential Diagnosis: Hypoglycemia, hyperglycemia Discharge Plan Plan Patient Disposition: HOME (Self Care) Disposition Comment: Stable Prescriptions/Referrals Prescriptions/Med Rec: No Action oxybutynin chloride 10 mg tablet extended release 24hr 10 mg PO QDAY estradiol [Estrace] 0.01 % (0.1 mg/gram) cream 2 g vaginal DIRECTED Patient Comments: twice a week metoprolol succinate 50 mg Tablet Extended Release 24 Hr 50 mg PO DAILY amlodipine 10 mg tablet 10 mg PO QDAY atorvastatin 20 mg Tablet 20 mg PO QDAY ibuprofen 800 mg Tablet 800 mg PO Q8H PRN (Reason: Pain) acetaminophen [Tylenol Ex Str Arthritis Pain] 500 mg Tablet 500 mg PO Q6H PRN (Reason: Pain) olmesartan 5 mg Tablet 5 mg PO QDAY Problem List Clinical Impression: Diabetes education, encounter for Patient/Caregiver Discharge Instructions Discharge Activity: activity as tolerated Education Materials: Diabetes Carbs Fats Protein, Diabetes: Ways to Take Medicine, Glucose Check Steps, ED Diabetes- Overview, ED Diet: Diabetes Additional Instructions: Continue taking your medication as instructed by your primary care provider. Education was provided and included in your discharge packet. Follow-up with primary care provider in 2 to 3 days. Return to emergency department for any worsening symptoms or as needed. Print Language: French Stand Alone Forms: [employer] Award Info., Patient Portal Info Letter PA/ACCOUNTING PROFESSOR Supervising Physician PA/NAOMIE Supervising Physician: Dr. Lyon
== END 2024-04-23 21:20 | disposition home or self-care (01) ==
LOC: SERX 21:35
PROVIDERS: Emergency Provider Emergency Medicine; PCP Family Medicine
DX: E11.9 Type 2 diabetes mellitus without complications (principal)
CPT/HCPCS: 99282

== ENCOUNTER → 2024-05-11 | Outpatient (CLI) | payer MEDICARE, SELFPAY | END | disposition home or self-care (01) | PROVIDERS: PCP Family Medicine; Referring Provider Nurse Practitioner Family; Visit Provider Nurse Practitioner Family | DX: N39.0 Urinary tract infection, site not specified (principal) | CPT/HCPCS: 87086 ==

== ENCOUNTER → 2024-05-21 | Outpatient (BNVA) | payer MEDICARE, SELFPAY | END | disposition home or self-care (01) | PROVIDERS: PCP Family Medicine; Referring Provider Family Medicine; Visit Provider Urology | DX: N32.81 Overactive bladder (principal); N39.41 Urge incontinence; N95.2 Postmenopausal atrophic vaginitis; E11.9 Type 2 diabetes mellitus without complications; I10 Essential (primary) hypertension; E66.9 Obesity, unspecified; Z68.31 Body mass index [BMI] 31.0-31.9, adult; E78.00 Pure hypercholesterolemia, unspecified; K21.9 Gastro-esophageal reflux disease without esophagitis | CPT/HCPCS: 81003; 99212; G0463 ==

== ENCOUNTER 2024-07-10 19:08 | Emergency (ER) | payer MEDICARE, SELFPAY ==
[2024-07-10 19:11] VITALS: BMI 25.2
[2024-07-10 20:36] VITALS: BP 157/76; PULSE 73; RESP 18; TEMP 36.6; O2SAT 95
--- NOTE | 2024-07-10 21:16 | PD.EDADULT ---
ED General RME/HPI General Chief complaint: Ear Stated complaint: RIGHT EAR AND JAW PAIN X 3 WEEKS Time Seen by Provider: 07/10/24 20:28 Arrival date/time: 07/10/24 19:08 Mode of arrival: ambulatory Limitations: no limitations RME / HPI RME / HPI narrative: 83-year-old female presents with a 1 day history of right-sided jaw pain. Is worse when she chews food. She denies any ear pain, sore throat or any bad teeth on the right side. She would like an x-ray of her jaw. Related Data Home Medications ?Medication ?Instructions ?Recorded ?Confirmed metoprolol succinate 50 mg 50 mg PO DAILY 01/01/18 05/21/24 tablet,extended release 24 hr amlodipine 10 mg tablet 10 mg PO QDAY 04/07/22 05/21/24 atorvastatin 20 mg tablet 20 mg PO QDAY 08/05/23 05/21/24 ibuprofen 800 mg tablet 800 mg PO Q8H PRN Pain 08/05/23 05/21/24 olmesartan 5 mg tablet 5 mg PO QDAY 08/05/23 05/21/24 estradiol 0.01% (0.1 mg/gram) 2 g vaginal DIRECTED 02/06/24 05/21/24 vaginal cream (Estrace) oxybutynin chloride 10 mg 10 mg PO QDAY 02/06/24 05/21/24 tablet,extended release 24 hr Previous Rx's ?Medication ?Instructions ?Recorded meloxicam 7.5 mg tablet 7.5 mg PO QDAY #10 tabs 07/10/24 gabapentin 100 mg capsule 100 mg PO QDAY #10 caps 08/30/24 Allergies Allergy/AdvReac Type Severity Reaction Status Date / Time codeine AdvReac Severe Vomiting Verified 07/10/24 19:09 morphine AdvReac Severe Vomiting Verified 07/10/24 19:09 Review of Systems Review of Systems Systems Reviewed: All systems reviewed, normal except as documented Past Medical History Past Medical History NEUROLOGIC: Negative Neurological Disorders or Seizures CARDIAC: Positive Cardiac Disorders, Hypercholesterolemia and Hypertension; Negative Congestive Heart Failure RESPIRATORY: Negative Chronic Obstructive Pulmonary Disease (COPD) or Asthma GASTROINTESTINAL: Positive Gastrointestinal Disorders, Gall Bladder Disease, Gastroesophageal Reflux Disease and Obesity; Negative Hepatitis GENITOURINARY: Negative Genitourinary Disorders or Renal Disease REPRODUCTIVE: Positive Previous Pregnancies; Negative Endometriosis MUSCULOSKELETAL: Positive Musculoskeletal Disorders, Arthritis and Carpal Tunnel Syndrome (left) ENT: Positive Cataracts (left) ENDOCRINE: Positive Endocrine Disorders and Diabetes Mellitus Type 2 (Diet control, does not take meds); Negative Diabetes Mellitus Type 1 HEMATOLOGIC: Negative Blood Disorders or Sickle Cell Disease OTHER HISTORY: Positive Hospitalization, Chicken Pox, Measles and Mumps; Negative Autoimmune Disease, Shingles, Falls, Blood Transfusions, Blood Transfusion Reaction, Anesthesia Reactions, Chemotherapy, Radiation Therapy, MRSA or Cancer Family History FAMILY HISTORY: Negative Family Psychiatric Problems, Family Respiratory Disorders, Family Cardiac Disorders, Family Gastrointestinal Problems, Family Cancer, Family Surgery or Family Anesthesia Reaction Surgical History SURGICAL: Positive Thyroidectomy, Ear Surgery, Joint Replacement, Hysterectomy and Tubal Ligation; Negative Cardiac Surgery Social History SMOKING STATUS: Never smoker SUBSTANCE USE: does not use ED Exam Narrative Physical exam: Alert and oriented 83-year-old female, no acute distress. Vital signs blood pressure 157/76, pulse 73, respirations 18 nonlabored, temp 97.9, O2 sat 95% on room air. TMs and pharynx without erythema. Nares without erythema, no frontal or maxillary sinus tenderness. Right temporomandibular joint with tenderness with jaw opening. Mild click noted. Neck is supple no adenopathy. Lungs are clear, regular rate and rhythm without murmurs. General Limitations: Present no limitations Course Course Course Narrative: 83-year-old female presents with a 1 day history of right-sided jaw pain. Is worse when she chews food. She denies any ear pain, sore throat or any bad teeth on the right side. She would like an x-ray of her jaw. Alert and oriented 83-year-old female, no acute distress. Vital signs blood pressure 157/76, pulse 73, respirations 18 nonlabored, temp 97.9, O2 sat 95% on room air. TMs and pharynx without erythema. Nares without erythema, no frontal or maxillary sinus tenderness. Right temporomandibular joint with tenderness with jaw opening. Mild click noted. Neck is supple no adenopathy. Lungs are clear, regular rate and rhythm without murmurs. She was given Toradol 15 mg IM and an x-ray of the mandible was obtained which were negative for acute fracture or TMJ dislocation. Quality Measures none Orders Category Date Time Status XR mandible <4V Stat Exams 07/10/24 21:17 Completed Ketorolac Inj [Toradol Inj] Med 07/10/24 21:17 Discontinued 15 mg IM X1 ONE Vital Signs Vital signs: Vital Signs Temperature 97.9 F 07/10/24 20:36 Pulse Rate 73 07/10/24 20:36 Respiratory Rate 18 07/10/24 20:36 Blood Pressure 157/76 H 07/10/24 20:36 Pulse Oximetry (%) 95 07/10/24 20:36 Oxygen Delivery Method Room Air 07/10/24 20:36 Discharge Plan Plan Patient Disposition: HOME (Self Care) Discharge Disposition comment: Stable Prescriptions/Referrals Prescriptions/Med Rec: New meloxicam 7.5 mg tablet 7.5 mg PO QDAY Qty: 10 0RF No Action oxybutynin chloride 10 mg tablet extended release 24hr 10 mg PO QDAY estradiol [Estrace] 0.01 % (0.1 mg/gram) cream 2 g vaginal DIRECTED Patient Comments: twice a week metoprolol succinate 50 mg Tablet Extended Release 24 Hr 50 mg PO DAILY amlodipine 10 mg tablet 10 mg PO QDAY atorvastatin 20 mg Tablet 20 mg PO QDAY ibuprofen 800 mg Tablet 800 mg PO Q8H PRN (Reason: Pain) olmesartan 5 mg Tablet 5 mg PO QDAY gabapentin 100 mg capsule 100 mg PO QDAY Qty: 10 0RF Rx Instructions: Take 1 tablet daily before bedtime for bilateral leg pain. 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 Return to the ED for any new or worsening symptoms. Print Language: Slovak Stand Alone Forms: [employer] Award Info., Patient Portal Info Letter PA/PASTE PLANT SUPERVISOR Supervising Physician PA/PASTE PLANT SUPERVISOR Supervising Physician: Dr. Davie CASTANEDA Patient Acuity Low Acuity (complete MDM as needed) Narrative: 83-year-old female presents with a 1 day history of right-sided jaw pain. Is worse when she chews food. She denies any ear pain, sore throat or any bad teeth on the right side. She would like an x-ray of her jaw. Alert and oriented 83-year-old female, no acute distress. Vital signs blood pressure 157/76, pulse 73, respirations 18 nonlabored, temp 97.9, O2 sat 95% on room air. TMs and pharynx without erythema. Nares without erythema, no frontal or maxillary sinus tenderness. Right temporomandibular joint with tenderness with jaw opening. Mild click noted. Neck is supple no adenopathy. Lungs are clear, regular rate and rhythm without murmurs. She was given Toradol 15 mg IM and an x-ray of the mandible was obtained which were negative for acute fracture or TMJ dislocation. Clinical Information Provided by: patient and family Medical Records reviewed [facility] Meds/Rx considered, not ordered None Labs/Rad/Tests considered, not ordered None Chronic Illness/Social Conditions which may negatively complicate care or outcome(s)-explain: None or not applicable EKG EKG not done Labs Labs: none Imaging Imaging interpretation: none or see narrative above Imaging Interpretation(s): XR Mandible: Findings: No fracture. No cortical bone destruction No temporomandibular joint dislocation Visualized facial bones intact Impression: Negative for fracture Medication Administration(s) Medication Administration History Discontinued Medications Ketorolac Tromethamine (Ketorolac Inj 60 Mg/2 Ml Vial) 15 mg IM X1 ONE Stop: 07/10/24 21:18 Last Admin: 07/10/24 21:55 Dose: 15 mg Documented By: Toradol 15 mg IM Diagnosis Differential Diagnosis ED Complaint MDM: Right otitis media, TMJ syndrome, right TMJ dislocation, right dental pain Diagnoses ruled out: Otitis media, TMJ dislocation, dental pain
--- NOTE | 2024-07-10 21:17 | XR_ITS ---
Examination: Mandible 5 views Technique: Jesús Coombs, lateral, right and left sagittal oblique mandible views 5 views Exam date and time: July 10, 2024 2151 hrs. Indications: Right jaw pain today Findings: No fracture. No cortical bone destruction No temporomandibular joint dislocation Visualized facial bones intact Impression: Negative for fracture
[2024-07-10] MEDS: KETOROLAC INJ 60 MG/2 ML VIAL 15 MG IM (21:55)
== END 2024-07-11 00:34 | disposition home or self-care (01) ==
PROVIDERS: Emergency Provider Emergency Medicine; PCP Family Medicine
DX: M26.621 Arthralgia of right temporomandibular joint (principal)
CPT/HCPCS: 70100; 96372; 99283; J1885

== ENCOUNTER 2024-08-30 07:00 | Emergency (ER) | payer MEDICARE, SELFPAY ==
[2024-08-30 07:07] VITALS: BP 136/73; PULSE 72; RESP 16; TEMP 36.8; O2SAT 97
--- NOTE | 2024-08-30 07:23 | XR_ITS ---
Examination: Venous duplex lower extremity sonogram, bilateral. Date and time of exam: August 30, 2024 0807 hours INDICATIONS: Bilateral leg pain 2 weeks Technique: Multiple sonographic images of the deep venous system have been obtained. B-mode/2-D grayscale imaging of vascular structures and Doppler spectral analysis (waveforms) and color performed Both legs are examined. Findings: Deep venous systems do not demonstrate abnormal echogenicity. All visualized deep veins exhibit compressibility. All visualized deep veins exhibit augmentation. Impression: Negative for deep vein thrombosis
--- NOTE | 2024-08-30 07:29 | PD.EDADULT ---
ED General RME/HPI General Chief complaint: General Adult/Misc Complain Stated complaint: BILATERAL LEG PAIN [id number] Time Seen by Provider: 08/30/24 07:09 Source: patient Arrival date/time: 08/30/24 07:00 Mode of arrival: ambulatory Limitations: no limitations RME / HPI RME / HPI narrative: 84-year-old female with past medical history of diabetes, hypertension, chronic back pain presents for evaluation of bilateral lower extremity pain x 2 weeks. She describes it as dull, intermittent and diffuse to bilateral lower legs. She states it is worse at rest and wakes her up from sleep at night. She endorses that it improves with ambulation. She denies chest pain, shortness of breath, cough, fever, rash, trauma, headache, weakness, tingling, numbness, recent travel, recent surgery. She reports that she is compliant with her diabetes medication and her daily blood sugars are in 110s. Patient reports taking ibuprofen 800 mg and using warm compresses daily with moderate improvement in her symptoms. She denies pain currently. Radiation: non-radiation Consistency: intermittent Relieving factors: movement Exacerbating factors: immobilization Associated symptoms: denies other symptoms Treatments prior to arrival: none Related Data Home Medications ?Medication ?Instructions ?Recorded ?Confirmed metoprolol succinate 50 mg 50 mg PO DAILY 01/01/18 05/21/24 tablet,extended release 24 hr amlodipine 10 mg tablet 10 mg PO QDAY 04/07/22 05/21/24 atorvastatin 20 mg tablet 20 mg PO QDAY 08/05/23 05/21/24 ibuprofen 800 mg tablet 800 mg PO Q8H PRN Pain 08/05/23 05/21/24 olmesartan 5 mg tablet 5 mg PO QDAY 08/05/23 05/21/24 estradiol 0.01% (0.1 mg/gram) 2 g vaginal DIRECTED 02/06/24 05/21/24 vaginal cream (Estrace) oxybutynin chloride 10 mg 10 mg PO QDAY 02/06/24 05/21/24 tablet,extended release 24 hr Previous Rx's ?Medication ?Instructions ?Recorded meloxicam 7.5 mg tablet 7.5 mg PO QDAY #10 tabs 07/10/24 gabapentin 100 mg capsule 100 mg PO QDAY #10 caps 08/30/24 Allergies Allergy/AdvReac Type Severity Reaction Status Date / Time codeine AdvReac Severe Vomiting Verified 07/10/24 19:09 morphine AdvReac Severe Vomiting Verified 07/10/24 19:09 Review of Systems Constitutional Constitutional: Denies body ache(s), Denies chills, Denies excessive sweating, Denies fever(s), Denies headache(s), Denies night sweats and Denies weakness Eyes Eyes: Denies blind spots, Denies blurry vision and Denies change in vision ENT Ears, Nose, Mouth, and Throat: Denies disequilibrium, Denies dizziness, Denies headache(s), Denies neck pain and Denies vertigo Cardiovascular Cardiovascular: Denies acrocyanosis, Denies chest pain, Denies chest pain with activity, Denies claudication, Denies dyspnea, Denies edema, Denies leg edema, Denies orthopnea, Denies paroxysmal nocturnal dyspnea and Denies pedal edema Respiratory Respiratory: Denies cough, Denies dyspnea, Denies hemoptysis and Denies wheezing Gastrointestinal Gastrointestinal: Denies abdominal pain, Denies nausea and Denies vomiting Genitourinary Genitourinary: Denies dysuria Musculoskeletal Musculoskeletal: Denies abnormal gait, Denies neck pain and Denies numbness Integumentary/Breasts Skin/Breast: Denies change in pigmentation, Denies changing lesions and Denies rash Neurologic Neurologic: Denies abnormal gait, Denies disequilibrium, Denies dizziness, Denies headache(s), Denies numbness, Denies vertigo and Denies weakness Endocrine Endocrine: Denies excessive sweating Allergic/Immunologic Allergic/Immunologic: Denies wheezing Past Medical History Past Medical History NEUROLOGIC: Negative Neurological Disorders or Seizures CARDIAC: Positive Cardiac Disorders, Hypercholesterolemia and Hypertension; Negative Congestive Heart Failure RESPIRATORY: Negative Chronic Obstructive Pulmonary Disease (COPD) or Asthma GASTROINTESTINAL: Positive Gastrointestinal Disorders, Gall Bladder Disease, Gastroesophageal Reflux Disease and Obesity; Negative Hepatitis GENITOURINARY: Negative Genitourinary Disorders or Renal Disease REPRODUCTIVE: Positive Previous Pregnancies; Negative Endometriosis MUSCULOSKELETAL: Positive Musculoskeletal Disorders, Arthritis and Carpal Tunnel Syndrome (left) ENT: Positive Cataracts (left) ENDOCRINE: Positive Endocrine Disorders and Diabetes Mellitus Type 2 (Diet control, does not take meds); Negative Diabetes Mellitus Type 1 HEMATOLOGIC: Negative Blood Disorders or Sickle Cell Disease OTHER HISTORY: Positive Hospitalization, Chicken Pox, Measles and Mumps; Negative Autoimmune Disease, Shingles, Falls, Blood Transfusions, Blood Transfusion Reaction, Anesthesia Reactions, Chemotherapy, Radiation Therapy, MRSA or Cancer Family History FAMILY HISTORY: Negative Family Psychiatric Problems, Family Respiratory Disorders, Family Cardiac Disorders, Family Gastrointestinal Problems, Family Cancer, Family Surgery or Family Anesthesia Reaction Surgical History SURGICAL: Positive Thyroidectomy, Ear Surgery, Joint Replacement, Hysterectomy and Tubal Ligation; Negative Cardiac Surgery Social History SMOKING STATUS: Never smoker SUBSTANCE USE: does not use ED Exam General Limitations: Present no limitations General appearance: Present alert and in no apparent distress Head Head exam: Present atraumatic and normocephalic Eye Eye exam: Present normal appearance, PERRL and EOMI ENT ENT exam: Present mucous membranes moist Neck Neck exam: Present normal inspection and full ROM Chest Chest inspection: Present normal inspection and symmetric chest wall rise Respiratory Respiratory exam: Present normal lung sounds bilaterally; Absent respiratory distress Cardiovascular Cardiovascular exam: Present regular rate and +S1 Abdominal Exam Abdominal exam: Present soft; Absent distention Expanded Lower Extremity Exam Upper leg exam: Present normal inspection; Absent tenderness Knee exam: Present tenderness (Bilateral mid calf tenderness to palpation. No overlying skin changes. No increased warmth.) and other (Well-healed surgical scar anterior left knee.); Absent swelling Lower leg exam: Present tenderness (See above.) and Achilles tendon intact; Absent swelling, ecchymosis, crepitus or erythema Ankle exam: Present normal inspection and other (Patient wearing ankle braces bilaterally.); Absent tenderness or swelling Foot/toe exam: Present normal inspection and full ROM; Absent tenderness or swelling Neurovascular/Tendon exam: Present normal capillary refill; Absent pulse deficit, sensory deficit or extremity cold to touch Gait: observed and normal Back Exam Back exam: Present paraspinal tenderness (Mild tenderness bilateral lumbar spine to palpation.); Absent vertebral tenderness Neurological Exam Neurological exam: Present alert, oriented X3, normal gait and reflexes normal (3+ bilateral patellar reflexes on exam.); Absent motor sensory deficit Expanded Neurological Exam Cerebellar function: Present normal gait Motor strength - LUE: 4/5 Motor strength - RUE: 4/5 Motor strength - LLE: 4/5 Motor strength - RLE: 4/5 Psychiatric Psychiatric exam: Present normal affect Skin Skin exam: Present warm, dry and normal color Course Quality Measures none Orders Category Date Time Status US venous duplex LE BI Stat Exams 08/30/24 07:23 Completed CBC Stat Lab 08/30/24 07:52 Completed CMP [Comprehensive Metabolic Panel] Stat Lab 08/30/24 07:52 Completed UA, C/S IF [Urinalysis, C/S if Indicated] Stat Lab 08/30/24 08:00 Completed Vital Signs Vital signs: Vital Signs Temperature 98.2 F 08/30/24 07:07 Pulse Rate 72 08/30/24 07:07 Respiratory Rate 16 08/30/24 07:07 Blood Pressure 136/73 H 08/30/24 07:07 Pulse Oximetry (%) 97 08/30/24 07:07 Oxygen Delivery Method Room Air 08/30/24 07:07 Pulse ox 97% on room air, within normal limit. Discharge Plan Plan Patient Disposition: HOME (Self Care) Discharge Disposition comment: stable Prescriptions/Referrals Prescriptions/Med Rec: New gabapentin 100 mg capsule 100 mg PO QDAY Qty: 10 0RF Rx Instructions: Take 1 tablet daily before bedtime for bilateral leg pain. No Action oxybutynin chloride 10 mg tablet extended release 24hr 10 mg PO QDAY estradiol [Estrace] 0.01 % (0.1 mg/gram) cream 2 g vaginal DIRECTED Patient Comments: twice a week metoprolol succinate 50 mg Tablet Extended Release 24 Hr 50 mg PO DAILY meloxicam 7.5 mg tablet 7.5 mg PO QDAY Qty: 10 0RF amlodipine 10 mg tablet 10 mg PO QDAY atorvastatin 20 mg Tablet 20 mg PO QDAY ibuprofen 800 mg Tablet 800 mg PO Q8H PRN (Reason: Pain) olmesartan 5 mg Tablet 5 mg PO QDAY Referrals: Temporary Provider,ED [Physician] - In 1 week Problem List Clinical Impression: Lower extremity pain, bilateral Patient/Caregiver Discharge Instructions Other Activity Instructions:: Follow-up with primary care within the next week for further evaluation of bilateral leg pain. Consider outpatient follow-up for possible chronic vascular component to symptoms. Take gabapentin once daily prior to bed. Continue to take other medications as previously prescribed. Return to the ED immediately if you develop shortness of breath or chest pain. Return to the ED if your symptoms worsen or change. Education Materials: Long-Term Complications of Diabetes, ED Peripheral Artery Disease (PAD) Print Language: [place] Stand Alone Forms: [employer] Award Info., Patient Portal Info Letter PA/HOSPITALITY HOUSEKEEPER Supervising Physician PA/HOSPITALITY HOUSEKEEPER Supervising Physician: Dr. Hinds [facility] Narrative MDM hospital course: 84-year-old female presented for evaluation of bilateral leg pain. Vital signs reassuring. Patient nontoxic-appearing with no evidence of sepsis on workup. Ultrasound negative for DVT. More likely chronic vascular issue. Patient safe for discharge home. Clinical Information Provided by patient Medical Records Reviewed [facility] Meds/Rx Considered, not Ordered Describe details: Gabapentin ordered for outpatient. Labs/Rad/Tests considered, not Ordered Describe details: Ultrasound negative for DVT. Metabolic panel shows no sign of endorgan damage or gross electrolyte abnormalities. White blood cells and UA however no sign of cystitis. No glycosuria. CBC within normal limits with no sign of anemia. Chronic Illness/Social Conditions which may negatively complicate care or outcome(s)-explain: None or not applicable Lab Interpretation Labs: interpreted by me and see narrative above Imaging Imaging interpretation: see narrative above Medication Administration(s) none Diagnosis Differential diagnosis: DVT versus neuropathy versus PAD versus PVD versus restless leg syndrome. Dispositon Disposition: Discharge Home
[2024-08-30 08:15] LABS: Collection Type, Urine Clean Catch
[2024-08-30 08:22] LABS: Alanine Aminotransferase 10 U/L (10-49); Albumin, Serum 4.2 gm/dL (3.4-4.8); Albumin/Globulin Ratio 1.6 (1.2-2.2); Alkaline Phosphatase 70 U/L (46-116); Anion Gap 10 (7-16); BUN/Creatinine Ratio 17 Ratio (12-20); Bilirubin,Total 0.4 mg/dL (0.3-1.2); Blood Urea Nitrogen 10 mg/dL (9-23); Calcium 9.2 mg/dL (8.3-10.6); Calcium (Corrected) 9.2 mg/dL (8.5-10.1); Carbon Dioxide 26.8 mMol/L (20.0-31.0); Chloride 107 mMol/L (98-107); Creatinine (Component) 0.6 mg/dL (0.6-1.3); Globulin 2.6 gm/dL (2.3-3.5); Glucose 95 mg/dL (74-106); Osmolality,Calculated 285 (275-295); Potassium 4.4 mMol/L (3.4-5.1); Sodium 144 mMol/L (136-145); Total Protein 6.8 gm/dL (5.7-8.2); eGFR > 60 See Note
[2024-08-30 08:52] LABS: Basophils % (Auto) 0 % (0-2.5); Eosinophils # (Auto) 0.2 Thou/mm3 (0.0-0.5); Eosinophils % (Auto) 2 % (0-10); Hematocrit 39.2 % (36.0-46.0); Hemoglobin 13.4 g/dL (12.0-16.0); Immature Granulocytes % (Auto) 0 % (0-0); Immature Granulocytes Auto 0.04 Thou/mm3 (0.00-0.00); Lymphocytes % (Auto) 19 % (10-50); Mean Corpuscular HGB Conc 34.2 g/dl (31.0-37.0); Mean Corpuscular Hemoglobin 30.2 pg (25.0-35.0); Mean Corpuscular Volume 88 fL (80-100); Monocytes # (Auto) 0.6 Thou/mm3 (0.0-0.8); Monocytes % (Auto) 6 % (0-12); Neutrophils # (Auto) 7.8 Thou/mm3 (1.8-7.7); Neutrophils % (Auto) 73 % (37-80); Nucleated Red Blood Cell % 0 /100 WBC (0); Platelet Count 242 Thou/mm3 (140-440); RDW Standard Deviation 41.4 fL (36.4-46.3); Red Blood Count 4.44 Miln/mm3 (4.00-5.20); White Blood Count 10.7 Thou/mm3 (3.6-11.0)
[2024-08-30 09:00] LABS: Bilirubin,Urine Negative (Negative); Blood,Urine Negative (Negative); Clarity,Urine Clear (Clear/Hazy); Color,Urine Yellow (Lt Yel-Yel); Culture Indicated,Urine Not Indicated; Glucose, Urine Negative (Negative); Ketones,Urine Negative (Negative); Leukocyte Esterase,Urine Negative (Negative); Nitrite,Urine Negative (Negative); Protein,Urine Negative (Neg - Trace); RBC,Urine 1 /hpf (0-3); Specific Gravity,Urine 1.017 (1.001-1.035); Squamous Epithelial Cell,Urine 1 /hpf (0-5); Urobilinogen,Urine Negative mg/dL (0.0-1.0); WBC,Urine 9 /hpf (0-5)
== END 2024-08-30 10:27 | disposition home or self-care (01) ==
PROVIDERS: Physician Assistant; Emergency Provider Emergency Medicine; PCP Family Medicine
DX: M79.605 Pain in left leg (principal); M79.604 Pain in right leg; E11.9 Type 2 diabetes mellitus without complications; I10 Essential (primary) hypertension
CPT/HCPCS: 36415; 80053; 81001; 85025; 93970; 99284